=== PATIENT | female | born 1990 | race African-American/Black ===

== ENCOUNTER 2018-12-19 19:49 | Emergency (ER) | payer SELFPAY ==
[2018-12-19] MEDS ORDERED: ONDANSETRON 4 MG TAB.RAPDIS PO ONE (20:15)
[2018-12-19] MEDS ORDERED: ACETAMINOPHEN 325 MG TABLET PO ONE (20:15)
--- NOTE | 2018-12-19 20:15 | ER Document Report ---
ED Medical Screen (RME) - General Chief Complaint: Headache Stated Complaint: HEADACHE/VOMITING Time Seen by Provider: 12/19/18 20:12 Mode of Arrival: Ambulatory Information source: Patient Notes: 28-year-old female presented to ED for complaint of headache and vomiting. She states she has had a headache for and vomiting for couple of hours. States she does have a history of headaches. Patient states she smokes less than 10 cigarettes a day occasionally drinks but does not do any street drugs. She states her last menstrual cycle was a week or so ago. When she was throwing up her chest was hurting. I have greeted and performed a rapid initial assessment of this patient. A comprehensive ED assessment and evaluation of the patient, analysis of test results and completion of medical decision making process will be conducted by an additional ED providers. Physical Exam - Vital signs Vitals: Temp Pulse Resp BP Pulse Ox 97.9 F 80 16 120/83 100 12/19/18 19:53 12/19/18 19:53 12/19/18 19:53 12/19/18 19:53 12/19/18 19:53 Course - Vital Signs Vital signs: Temp Pulse Resp BP Pulse Ox 97.9 F 80 16 120/83 100 12/19/18 19:53 12/19/18 19:53 12/19/18 19:53 12/19/18 19:53 12/19/18 19:53
[2018-12-19] MEDS ORDERED: METOCLOPRAMIDE HCL INJ/PF 10 MG/2 ML SDV IV ONE (22:41)
[2018-12-19] MEDS ORDERED: DIPHENHYDRAMINE HCL 50 MG/ML VIAL IV ONE (22:41)
[2018-12-19] MEDS ORDERED: KETOROLAC TROMETHAMINE INJ/PF 30 MG/1 ML SDV IV ONE (22:42)
[2018-12-19] MEDS ORDERED: NORMAL SALINE 1000 ML 1,000 ML IV ONE (22:42)
--- NOTE | 2018-12-19 22:51 | ER Document Report ---
ED Headache - General Mode of Arrival: Ambulatory <ALFONZO CHAU - Last Filed: 12/19/18 23:44> <VIANEY POON - Last Filed: 12/20/18 07:35> - General Chief Complaint: Headache Stated Complaint: HEADACHE/VOMITING Time Seen by Provider: 12/19/18 20:12 Notes: 28-year-old female with history of migraine headaches presents to the emergency department with chief complaint of headache, nausea, vomiting since today. Patient states that the nausea and vomiting is not typical of previous migraines and her pattern is slightly different. She states that she is having pain over the frontal area of her head and it is described as squeezing. Patient also states she is having some mild blurred vision vision loss or visual field cuts. Patient complains of mild neck stiffness, denies acute shortness of breath or chest pain, denies abdominal pain. No other complaints (ALFONZO CHAU) - Related Data Allergies/Adverse Reactions: Penicillins Allergy (Verified 12/19/18 20:15) Past Medical History - General Information source: Patient - Social History Smoking Status: Current Every Day Smoker Frequency of alcohol use: Occasional Patient has suicidal ideation: No Patient has homicidal ideation: No <ALFONZO CHAU - Last Filed: 12/19/18 23:44> - Social History Family History: Reviewed & Not Pertinent <VIANEY POON - Last Filed: 12/20/18 07:35> Review of Systems - Review of Systems Constitutional: See HPI EENT: See HPI Cardiovascular: See HPI Respiratory: See HPI Gastrointestinal: No symptoms reported Genitourinary: No symptoms reported Female Genitourinary: See HPI Musculoskeletal: No symptoms reported Skin: No symptoms reported Hematologic/Lymphatic: No symptoms reported Neurological/Psychological: See HPI <ALFONZO CHAU - Last Filed: 12/19/18 23:44> Physical Exam <ALFONZO CHAU - Last Filed: 12/19/18 23:44> - Vital signs Vitals: Temp Pulse Resp BP Pulse Ox 97.9 F 80 16 120/83 100 12/19/18 19:53 12/19/18 19:53 12/19/18 19:53 12/19/18 19:53 12/19/18 19:53 - Notes Notes: PHYSICAL EXAMINATION: Reviewed vital signs and charting by RN GENERAL: Alert, interacts well. No acute distress. HEAD: Normocephalic, atraumatic. EYES: Pupils equal and round. Extraocular movements intact. ENT: Oral mucosa moist, tongue midline. NECK: Full range of motion. Trachea midline. LUNGS: Clear to auscultation bilaterally, no wheezes, rales, or rhonchi. No respiratory distress. HEART: Regular rate and rhythm. No murmur ABDOMEN: soft, non-tender. No distention. Bowel sounds present EXTREMITIES: Moves all 4 extremities spontaneously. No edema, No cyanosis. NEURO: A &O X 3, normal speech, PERRL, EOMI, SILT, follows commands in all 4 extremities, no gross abnormalities of cranial nerves, no focal neuro deficits, no pronator drift, [id number] testing normal, rapid alternating hand movements normal, [id number] normal, bumper and painter strength 5/5 bilateral, 5/5 strength in both proximal and distal upper and lower extremities PSYCH: Normal affect, normal mood. SKIN: Warm, dry, normal turgor. No rashes or lesions noted. (ALFONZO CHAU) Course <ALFONZO CHAU - Last Filed: 12/19/18 23:44> <VIANEY POON - Last Filed: 12/20/18 07:35> - Re-evaluation Re-evalutation: 12/19/18 22:51 Well-appearing in no obvious distress. 2 young children in the room who are very loud. Patient with a normal neurologic exam. I am going to give her a migraine cocktail and some IV fluids to see if that improves her symptoms then p.o. challenge her. Still awaiting urinalysis. 12/19/18 23:44 Warm bedside handoff completed with Vianey Poon NP. She graciously accepted the patient. (ALFONZO CHAU) 12/20/18 02:04 Patient's IV fluids have taken well to infuse. Patient states that she feels much better with her headache. Patient fell asleep and is now just giving her urine sample. I expressed to the patient that I will follow-up with her urine and get her discharge paperwork in. If her urine is she has a urinary tract infection, I will give her a call. She is in agreement with this plan. Follow- up precautions were given. Verbal discharge instructions were given to the patient. They verbalized understanding. They are stable for discharge. 12/20/18 03:35 Patient's urinalysis is unremarkable. (VIANEY POON) - Vital Signs Vital signs: Temp Pulse Resp BP Pulse Ox 98.1 F 76 15 117/83 99 12/20/18 02:22 12/20/18 02:22 12/20/18 02:22 12/20/18 02:22 12/20/18 02:22 - Laboratory Laboratory results interpreted by me: 12/20/18 02:13 Urine Protein 30 H Discharge <ALFONZO CHAU - Last Filed: 12/19/18 23:44> <VIANEY POON - Last Filed: 12/20/18 07:35> - Discharge Clinical Impression: Headache Qualifiers: Headache chronicity pattern: acute headache Vomiting Qualifiers: Vomiting type: unspecified Vomiting Intractability: non-intractable Condition: Stable Disposition: HOME, SELF-CARE Instructions: Antinausea Medication ([facility]), Use of Diphenhydramine, Headache ([facility]), Intravenous (IV) Fluids ([facility]) Additional Instructions: You were seen today for a migraine headache. Please follow-up with your primary care doctor regarding today's ED visit. Return to emergency department immediately if you develop a headache that gets to its maximum severity within 20 minutes of onset, you pass out, you develop weakness, numbness, changes in your vision, become unable to keep any fluids down for more than 12 hours, or develop a fever greater than 100.4 degrees Fahrenheit. If you develop a similar migraine headache in the future I recommend that you immediately take 600 mg of ibuprofen and 50 mg of Benadryl and go to sleep as quickly as possible. This can often prevent your migraine headache from becoming severe. If your urinalysis shows a urinary tract infection, antibiotics will be called in. Prescriptions: Metoclopramide HCl [Reglan 10 mg Tablet] 1 - 2 tab PO ASDIR PRN #25 tablet PRN Reason: Forms: Return to Work
[2018-12-20 02:24] VITALS: BP 117/83
[2018-12-20 02:38] LABS: APPEARANCE,URINE SLIGHTLY-CLOUDY; BILIRUBIN,URINE NEGATIVE (NEGATIVE); COLOR,URINE YELLOW; GLUCOSE, URINE NEGATIVE (NEGATIVE); KETONES,URINE NEGATIVE (NEGATIVE); PROTEIN,URINE 30 mg/dL (NEGATIVE); URINE SPECIFIC GRAVITY 1.021; UROBILINOGEN,URINE NEGATIVE mg/dL (<2.0)
== END 2018-12-20 02:22 | disposition home or self-care (01) ==
LOC: ER 19:49
DX: R51 Headache (principal); R11.2 Nausea with vomiting, unspecified; M43.6 Torticollis; F17.200 Nicotine dependence, unspecified, uncomplicated; Z88.0 Allergy status to penicillin
CPT/HCPCS: 81025; 81001; J1200; S0119; J1885; J2765; J7030; 96361; 96374; 96375; 99284

== ENCOUNTER 2020-02-09 11:09 | Emergency (ER) | payer SELFPAY ==
[2020-02-09] MEDS ORDERED: ALBUTEROL SULFATE 0.083% NEB 2.5 MG/3 ML AMPUL NEB ONE (11:36)
--- NOTE | 2020-02-09 11:36 | ER Document Report ---
ED Medical Screen (RME) - General Chief Complaint: Shortness Of Breath Stated Complaint: SOB,ATHSMA,SORE THROAT Time Seen by Provider: 02/09/20 11:34 - HPI Notes: 02/09/20 11:38 29-year-old Old female presents to ED for evaluation of 2 complaints. Patient is concerned for her, as she has increased cough and cold symptoms. Patient also notes that she feels somewhat short of breath. Patient has been taking her Symbicort and did take it prior to arrival. Patient denies concern for Covid at this time. Patient states that she is having a vaginal discharge. She is concerned for yeast infection. Denies any STD concerns. Patient states that she is having thick discharge. Notes that this been going on for roughly 2 days. Denies any nausea or vomiting. Denies abdominal complaints. - Related Data Allergies/Adverse Reactions: Penicillins Allergy (Verified 02/09/20 11:36) Physical Exam - Vital signs Vitals: Temp Pulse Resp BP Pulse Ox 98.3 F 82 16 105/76 97 02/09/20 11:14 02/09/20 11:14 02/09/20 11:14 02/09/20 11:14 02/09/20 11:14 General: No acute distress. Alert and oriented x3. Sitting comfortably in a stretcher. Skin: Intact without any jaundice, pallor, or erythema. Warm and dry. HEENT: Normocephalic, atraumatic. Pupils are equal round reactive to light and accommodation. Extraocular movements are intact. TMs without erythema with bulging. Canals are clear. Nares patent without any discharge. Teeth in good condition. Pharynx without erythema, edema, or exudates. No tonsillar enlargement. Uvula is midline. Airway is patent. Neck: Supple with no lymphadenopathy. Full range of motion. Heart: Regular rate and rhythm. S1,S2. No murmurs, rubs, or gallops. Lungs: Scant wheezes without rhonchi, rales. Equal chest expansion. No retractions. Abdomen: Soft, nontender to palpation, nondistended. Positive bowel sounds in all 4 quadrants. No hepatosplenomegaly. No masses. No CVA tenderness bilaterally. Neuro: GCS 15. Moving all extremities without discomfort. Psych: Mood and affect appropriate. Course - Vital Signs Vital signs: Temp Pulse Resp BP Pulse Ox 98.3 F 82 16 105/76 97 02/09/20 11:14 02/09/20 11:14 02/09/20 11:14 02/09/20 11:14 02/09/20 11:14
[2020-02-09 12:08] LABS: BACTERIA (WET MOUNT) 4+ BACTERIA SEEN; EPITHELIALS (WET MOUNT) 4+ EPITHELIALS SEEN; T.VAGINALIS (WET MOUNT) NO TRICHOMONAS SEEN; WBCS (WET MOUNT) 1+ WBCS SEEN; YEAST (WET MOUNT) YEAST SEEN
[2020-02-09] MEDS ORDERED: DEXAMETHASONE 4 MG TABLET PO ONE (12:23)
--- NOTE | 2020-02-09 12:25 | RADIOLOGY REPORT (SQ) ---
EXAM DESCRIPTION: CHEST SINGLE VIEW IMAGES COMPLETED DATE/TIME: 02/09/2020 10:58 am REASON FOR STUDY: cough. COMPARISON: None. EXAM PARAMETERS: NUMBER OF VIEWS: One view. TECHNIQUE: Single frontal radiographic view of the chest acquired. RADIATION DOSE: NA LIMITATIONS: None. FINDINGS: LUNGS AND PLEURA: No opacities, masses or pneumothorax. No pleural effusion. MEDIASTINUM AND HILAR STRUCTURES: No masses. Contour normal. HEART AND VASCULAR STRUCTURES: Heart normal in size. Normal vasculature. BONES: No acute findings. HARDWARE: None in the chest. OTHER: No other significant finding. IMPRESSION: NO ACUTE RADIOGRAPHIC FINDING IN THE CHEST. TECHNICAL DOCUMENTATION: JOB ID: [id number] 2010 [employer]- All Rights Reserved Reading location - IP/workstation name: [email or web address]
--- NOTE | 2020-02-09 12:34 | ER Document Report ---
ED Respiratory Problem - General Chief Complaint: Sore Throat Stated Complaint: SOB,ATHSMA,SORE THROAT Time Seen by Provider: 02/09/20 11:34 Notes: CHIEF COMPLAINT: Multiple complaints HPI: 29-year-old female with asthma history presenting for increased use of her inhaler with wheezing over the last 2 days. Concerned about flu and Covid. Patient also with sore throat on the right side for the last 2 days concerned about strep throat. She is also had a vaginal discharge for the last 2 to 3 days with no dysuria or pelvic pain. ROS: See HPI - all other systems were reviewed and are otherwise negative Constitutional: no fever or recent illness Eyes: no drainage, no blurred vision ENT: no runny nose, no sore throat Cardiovascular: no chest pain Resp: no SOB, + cough GI: no vomiting, no diarrhea : no dysuria, + vaginal discharge Integumentary: no rash Allergy: no hives Musculoskeletal: no extremity pain or swelling Neurological: no numbness/tingling, no weakness MEDICATIONS: I agree with the patient medications as charted by the RN. ALLERGIES: I agree with the allergies as charted by the RN. PAST MEDICAL HISTORY/PAST SURGICAL HISTORY: Reviewed and agree as charted by RN. SOCIAL HISTORY: Reviewed and agree as charted by RN. FAMILY HISTORY: No significant familial comorbid conditions directly related to patient complaint EXAM: Reviewed vital signs as charted by RN. CONSTITUTIONAL: Alert and oriented and responds appropriately to questions. Well-appearing; well-nourished HEAD: Normocephalic; atraumatic EYES: PERRL; Conjunctivae clear, sclerae non-icteric ENT: normal nose; no rhinorrhea; moist mucous membranes; pharynx without lesions noted NECK: Supple without meningismus; non-tender; no cervical lymphadenopathy, no masses CARD: RRR; no murmurs, no clicks, no rubs, no gallops; symmetric distal pulses RESP: Normal chest excursion without splinting or tachypnea; breath sounds clear and equal bilaterally; no wheezes, no rhonchi, no rales, 98% on room air not hypoxic ABD/GI: Normal bowel sounds; non-distended; soft, non-tender, no rebound, no guarding; no palpable organomegaly or masses : 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 External genitalia normal. No skin lesions noted. Pelvic Exam: No active bleeding. Moderate amount of a thick greenish discharge with odor. Cervix appears normal. No CMT. No lesions or masses. Uterus normal size and non tender. Right/Left adnexa normal size and non tender. BACK: The back appears normal and is non-tender to palpation, there is no CVA tenderness EXT: Normal ROM in all joints; non-tender to palpation; no cyanosis, no effusions, no edema SKIN: Normal color for age and race; warm; dry; good turgor; no acute lesions noted NEURO: Moves all extremities equally; Motor and sensory function intact PSYCH: The patient's mood and manner are appropriate. Grooming and personal hygiene are appropriate. MDM: 29-year-old female presenting for asthma complaint. She is concerned about flu strep and Covid. Will obtain these tests. Chest x-ray ordered via triage process. Self swab wet prep ordered via triage process. I discussed this with the patient. We did perform a full pelvic exam and she is noted to have copious thick green discharge. We will send STD cultures. - Related Data Allergies/Adverse Reactions: Penicillins Allergy (Verified 02/09/20 11:36) Past Medical History - Social History Smoking Status: Current Every Day Smoker Chew tobacco use (# tins/day): No Frequency of alcohol use: Occasional Drug Abuse: None Family History: Reviewed & Not Pertinent Patient has homicidal ideation: No Physical Exam - Vital signs Vitals: Temp Pulse Resp BP Pulse Ox 98.3 F 82 16 105/76 97 02/09/20 11:14 02/09/20 11:14 02/09/20 11:14 02/09/20 11:14 02/09/20 11:14 Course - Re-evaluation Re-evalutation: 02/09/20 13:46 Patient is not . Urine does not show evidence of infection. Chest x- ray was negative for acute findings strep and flu were both negative. Patient will be a person under investigation for COVID-19. Also noted to have vaginitis as well as vaginal candidiasis. Will treat with Flagyl, Diflucan patient will self quarantine at home. - Vital Signs Vital signs: Temp Pulse Resp BP Pulse Ox 98.3 F 82 16 105/76 97 02/09/20 11:14 02/09/20 11:14 02/09/20 11:14 02/09/20 11:14 02/09/20 11:14 - Laboratory Results Laboratory Results Interpreted: 02/09/20 13:20 Urine Urobilinogen 2.0 H Urine Ascorbic Acid 40 H Critical Laboratory Results Reviewed: No Critical Results - Radiology Results Critical Radiology Results Reviewed: No Critical Results Discharge - Discharge Clinical Impression: Person under investigation for COVID-19, Vaginal candidiasis, Cough, Acute bronchospasm due to viral infection Vaginitis Qualifiers: Chronicity: acute Qualified Code(s): N76.0 - Acute vaginitis Condition: Stable Disposition: HOME, SELF-CARE Instructions: COVID-19 Guidance for Persons Under Investigation Additional Instructions: You are considered a person under investigation for COVID-19 at this time self quarantine at home pending your test results. Test results may take 2 to 5 days. You should receive notification from the hospital about your test results. It was also noted that you have a vaginal yeast infection as well as a bacterial vaginal infection. Take the Flagyl and Diflucan to treat this. Take the Decadron to treat the bronchospasm related to the viral illness. Return for any worsened symptoms or concerns otherwise follow-up with your primary care provider for reevaluation Prescriptions: Dexamethasone [Decadron 4 Mg Tablet] 4 mg PO DAILY #7 tablet Fluconazole [Diflucan] 150 mg PO ONCE PRN #1 tablet PRN Reason: Metronidazole [Flagyl 500 mg Tablet] 500 mg PO BID #14 tablet
[2020-02-09 13:29] LABS: A TYPE INFLUENZA AG NEGATIVE (NEGATIVE); B INFLUENZA AG NEGATIVE (NEGATIVE)
[2020-02-09 13:41] LABS: APPEARANCE,URINE SLIGHTLY-CLOUDY; BILIRUBIN,URINE NEGATIVE (NEGATIVE); COLOR,URINE YELLOW; GLUCOSE, URINE NEGATIVE (NEGATIVE); KETONES,URINE NEGATIVE (NEGATIVE); LEUKOCYTE ESTERASE,URINE NEGATIVE (NEGATIVE); NITRITE,URINE NEGATIVE (NEGATIVE); PROTEIN,URINE NEGATIVE (NEGATIVE); URINE SPECIFIC GRAVITY 1.027
[2020-02-09] MEDS ORDERED: FLUCONAZOLE 100 MG TABLET PO ONE (13:46)
[2020-02-09] MEDS ORDERED: METRONIDAZOLE 500 MG TABLET PO ONE (13:46)
[2020-02-09 14:06] VITALS: BP 108/74
[2020-02-09 14:36] LABS: CHLAM PCR NOT DETECTED (NOT DETECT)
== END 2020-02-09 14:05 | disposition home or self-care (01) ==
LOC: ER 11:09
DX: B34.9 Viral infection, unspecified (principal); J45.909 Unspecified asthma, uncomplicated; N76.0 Acute vaginitis; B96.89 Other specified bacterial agents as the cause of diseases classified elsewhere; F17.200 Nicotine dependence, unspecified, uncomplicated; Z88.0 Allergy status to penicillin; Z20.828 Contact with and (suspected) exposure to other viral communicable diseases
CPT/HCPCS: 94640; 99284; 87070; 87210; 87880; 87635; 81025; 81001; 87491; 87591; 87804; 71045; J8540; J7613; C9803